=== PATIENT | female | born 1970 | race African-American/Black ===

== ENCOUNTER 2016-11-06 12:59 | Emergency (ER) | payer BC ==
[~2016-11-06] VITALS: Ht 162.6 cm; Wt 77.0 kg
[~2016-11-06 12:59] MED LIST: ALBU6.7H IH; MONT10TA21 PO; SYMB8060 IH; [UNRECOGNIZED DRUG - REMARK] PO
[2016-11-06] MEDS ORDERED: FLUT1AER PO (13:13)
[2016-11-06] MEDS ORDERED: PredniSONE 20 MG TABLET PO ONE (14:00)
[2016-11-06] MEDS ORDERED: IPRATROPIUM BROMIDE 0.5 MG/2.5 ML NEB SOLUTION NEB ONE (14:00)
[2016-11-06] MEDS ORDERED: ALBUTEROL SULFATE 5 MG/ML 20 ML NEB SOLN [BULK] NEB ONE (14:00)
[2016-11-06 16:24] VITALS: BP 144/83
[2016-11-07] MEDS ORDERED: FLUT1AER PO (09:55)
== END 2016-11-06 16:25 | disposition home or self-care (01) ==
LOC: EMS 13:01
DX: J45.901 Unspecified asthma with (acute) exacerbation (principal); Z88.0 Allergy status to penicillin; Z88.1 Allergy status to other antibiotic agents
CPT/HCPCS: 94644; 99285; J7512

== ENCOUNTER 2016-11-07 09:28 | Inpatient (IN) | payer BC ==
[~2016-11-07] VITALS: Ht 162.6 cm; Wt 83.5 kg
[~2016-11-07 09:28] MED LIST changes: +FLUT1AER PO; -SYMB8060 IH; -[UNRECOGNIZED DRUG - REMARK] PO
[2016-11-07] MEDS ORDERED: FLUT1AER PO (09:55)
[2016-11-07] MEDS ORDERED: PredniSONE 20 MG TABLET PO ONE (11:45)
[2016-11-07] MEDS ORDERED: ACETAMINOPHEN 500 MG TABLET PO ONE (11:45)
[2016-11-07] MEDS ORDERED: IPRATROPIUM BROMIDE 0.5 MG/2.5 ML NEB SOLUTION NEB ONE (11:45)
[2016-11-07] MEDS ORDERED: ALBUTEROL SULFATE 2.5 MG/0.5 ML NEB SOLUTION NEB ONE (11:45)
[2016-11-07] MEDS ORDERED: PANTOPRAZOLE SODIUM 40 MG/VIAL IVP ONE (14:45)
[2016-11-07] MEDS ORDERED: MethylPREDNISolone SOD SUCC 125 MG/2 ML VIAL IVP ONE (14:45)
[2016-11-07] MEDS ORDERED: SODIUM CHLORIDE 0.9% 100 ML ONE (14:59)
[2016-11-07] MEDS ORDERED: IOVERSOL 350 MG/ML 100 ML VIAL ONE (14:59)
[2016-11-07 15:12] LABS: ANION GAP 10 mmol/L (8-16); CALCIUM, TOTAL 8.5 mg/dL (8.8-10.5); CARBON DIOXIDE 25 mmol/L (22-29); CHLORIDE 103 mmol/L (98-107); CREATININE 1.13 mg/dL (0.60-1.30); GLOMERULAR FILTR. RATE CALC > 60 mL/min (>60); HEMATOCRIT 39.4 % (36-46); HEMOGLOBIN 12.8 g/dL (12.0-16.0); MEAN CORPUSCULAR HEMOGLOBIN 31.3 pg (26.0-34.0); MEAN CORPUSCULAR HGB CONC 32.5 G/dL (31.0-37.0); MEAN CORPUSCULAR VOLUME 96 fL (80-100); PLATELET COUNT (AUTO) 257 K/uL (150-450); POTASSIUM 3.5 mmol/L (3.5-5.1); RED CELL DISTRIBUTION WIDTH 15.3 % (11.5-14.5); SODIUM SERUM 138 mmol/L (136-145); UREA NITROGEN, BLOOD 8 mg/dL (7-18); WHITE BLOOD COUNT (AUTO) 8.8 K/uL (4.5-11.0)
[2016-11-07 15:19] LABS: ALANINE AMINOTRANSFERASE 53 U/L (12-78); ALBUMIN 3.3 g/dL (3.4-5.0); ASPARTATE AMINOTRANSFERASE 41 U/L (15-37); BILIRUBIN,TOTAL 0.7 mg/dL (0.1-1.0); TOTAL PROTEIN, SERUM 7.2 g/dL (6.4-8.2)
[2016-11-07 15:44] LABS: BAND NEUTROPHILS % (MANUAL) 13 % (1-5); LYMPHOCYTES % (MANUAL) 7 % (22-44); TOTAL CELLS COUNTED 100
[2016-11-07] MEDS ORDERED: AZITHROMYCIN 500 MG/NS 250 ML IV ONE (17:00)
[2016-11-07] MEDS ORDERED: BISACODYL 10 MG RECTAL RECTAL SUPPOSITORY PR PRN (17:00)
[2016-11-07] MEDS ORDERED: MORPHINE SULFATE 2 MG/ML SYRINGE IVP PRN (17:00)
[2016-11-07] MEDS ORDERED: IPRATROPIUM BROMIDE 0.5 MG/2.5 ML NEB SOLUTION NEB PRN (17:00)
[2016-11-07] MEDS ORDERED: LEVOFLOXACIN 750 MG/D5% WATER 150 ML IV ONE (17:00)
[2016-11-07] MEDS ORDERED: HYDROCODONE/ACETAMINOPHEN 5-325 MG TABLET PO PRN (17:00)
[2016-11-07] MEDS ORDERED: MAGNESIUM HYDROXIDE SUSPENSION 30 ML UDCUP PO PRN (17:00)
[2016-11-07] MEDS ORDERED: ONDANSETRON HCL 4 MG/2 ML VIAL IVP PRN (17:00)
[2016-11-07] MEDS ORDERED: ALBUTEROL SULFATE 2.5 MG/0.5 ML NEB SOLUTION NEB PRN (17:00)
[2016-11-07] MEDS: MethylPREDNISolone SOD SUCC 125 MG/2 ML VIAL IVP SCH (18:07)
[2016-11-07 18:45] VITALS: BP 141/80
[2016-11-07 19:33] VITALS: BP 145/81
[2016-11-07] MEDS: GuaiFENesin SR 600 MG ER TABLET PO SCH (20:11)
[2016-11-07] MEDS: DOCUSATE SODIUM 100 MG CAPSULE PO SCH (20:11)
[2016-11-07] MEDS: BENZONATATE 100 MG CAPSULE PO SCH (20:11)
[2016-11-07] MEDS: ACETAMINOPHEN 325 MG TABLET PO PRN (20:11)
[2016-11-07] MEDS: IPRATROPIUM BROMIDE 0.5 MG/2.5 ML NEB SOLUTION NEB SCH (20:30)
[2016-11-07] MEDS: ALBUTEROL SULFATE 2.5 MG/0.5 ML NEB SOLUTION NEB SCH (20:30)
[2016-11-07 23:32] VITALS: BP 140/79
[2016-11-08] MEDS: HEPARIN SODIUM,PORCINE 5,000 UNITS/ML VIAL SQ SCH ×4 (00:43→23:13)
[2016-11-08] MEDS: MethylPREDNISolone SOD SUCC 125 MG/2 ML VIAL IVP SCH ×5 (00:43→23:13)
[2016-11-08] MEDS: ALBUTEROL SULFATE 2.5 MG/0.5 ML NEB SOLUTION NEB SCH ×4 (02:06→20:58)
[2016-11-08] MEDS: IPRATROPIUM BROMIDE 0.5 MG/2.5 ML NEB SOLUTION NEB SCH ×4 (02:07→20:58)
[2016-11-08 04:33] VITALS: BP 151/71
[2016-11-08 07:21] VITALS: BP 151/97
[2016-11-08] MEDS: DOCUSATE SODIUM 100 MG CAPSULE PO SCH ×2 (09:00→20:52)
[2016-11-08] MEDS: FLUTICASONE/VILANTEROL 100-25 MCG/INH INHALER [14] IH SCH (09:03)
[2016-11-08] MEDS: PANTOPRAZOLE SODIUM 40 MG DR TABLET PO SCH (09:04)
[2016-11-08] MEDS: BENZONATATE 100 MG CAPSULE PO SCH ×3 (09:04→20:45)
[2016-11-08] MEDS: GuaiFENesin SR 600 MG ER TABLET PO SCH ×2 (09:04→20:45)
[2016-11-08 11:29] VITALS: BP 148/80
[2016-11-08 15:29] VITALS: BP 131/57
[2016-11-08 19:12] VITALS: BP 154/93
[2016-11-08] MEDS: ZOLPIDEM TARTRATE 5 MG TABLET PO PRN (23:13)
[2016-11-08 23:19] VITALS: BP 135/86
[2016-11-09] MEDS: ALBUTEROL SULFATE 2.5 MG/0.5 ML NEB SOLUTION NEB SCH ×4 (02:12→19:47)
[2016-11-09] MEDS: IPRATROPIUM BROMIDE 0.5 MG/2.5 ML NEB SOLUTION NEB SCH ×4 (02:12→19:47)
[2016-11-09 04:33] VITALS: BP 157/89
[2016-11-09] MEDS: MethylPREDNISolone SOD SUCC 125 MG/2 ML VIAL IVP SCH ×2 (05:56→12:52)
[2016-11-09 07:39] VITALS: BP 167/103
[2016-11-09] MEDS: HEPARIN SODIUM,PORCINE 5,000 UNITS/ML VIAL SQ SCH ×3 (08:30→23:32)
[2016-11-09] MEDS: BENZONATATE 100 MG CAPSULE PO SCH ×3 (08:30→20:24)
[2016-11-09] MEDS: GuaiFENesin SR 600 MG ER TABLET PO SCH ×2 (08:30→20:24)
[2016-11-09] MEDS: DOCUSATE SODIUM 100 MG CAPSULE PO SCH ×2 (08:30→20:24)
[2016-11-09] MEDS: FLUTICASONE/VILANTEROL 100-25 MCG/INH INHALER [14] IH SCH (08:30)
[2016-11-09] MEDS: PANTOPRAZOLE SODIUM 40 MG DR TABLET PO SCH (08:30)
[2016-11-09 10:00] VITALS: BP 147/77
[2016-11-09 12:03] VITALS: BP 141/100
[2016-11-09] MEDS: MethylPREDNISolone SOD SUCC 40 MG/ML VIAL IVP SCH ×2 (18:10→23:32)
[2016-11-09 19:42] VITALS: BP 154/86
[2016-11-09] MEDS ORDERED: AmLODIPine BESYLATE 5 MG TABLET PO SCH (21:00)
[2016-11-09] MEDS: ZOLPIDEM TARTRATE 5 MG TABLET PO PRN (23:33)
[2016-11-09 23:58] VITALS: BP 142/89
[2016-11-10] MEDS: ALBUTEROL SULFATE 2.5 MG/0.5 ML NEB SOLUTION NEB SCH ×3 (01:23→07:01)
[2016-11-10] MEDS: IPRATROPIUM BROMIDE 0.5 MG/2.5 ML NEB SOLUTION NEB SCH ×3 (01:23→07:01)
[2016-11-10 04:33] VITALS: BP 133/63
[2016-11-10] MEDS: MethylPREDNISolone SOD SUCC 40 MG/ML VIAL IVP SCH ×2 (05:16→11:45)
[2016-11-10 07:47] VITALS: BP 147/85
[2016-11-10] MEDS: PANTOPRAZOLE SODIUM 40 MG DR TABLET PO SCH (08:22)
[2016-11-10] MEDS: BENZONATATE 100 MG CAPSULE PO SCH (08:22)
[2016-11-10] MEDS: GuaiFENesin SR 600 MG ER TABLET PO SCH (08:22)
[2016-11-10] MEDS: FLUTICASONE/VILANTEROL 100-25 MCG/INH INHALER [14] IH SCH (08:25)
[2016-11-10] MEDS: HEPARIN SODIUM,PORCINE 5,000 UNITS/ML VIAL SQ SCH (08:26)
[2016-11-10] MEDS: DOCUSATE SODIUM 100 MG CAPSULE PO SCH (08:26)
[2016-11-10] MEDS: ACETAMINOPHEN 325 MG TABLET PO PRN (09:07)
[2016-11-10 11:00] VITALS: BP 132/80
[2016-11-10] MEDS ORDERED: AMLO-511 PO (11:02)
[2016-11-10] MEDS ORDERED: BENZ-26 PO (11:03)
[2016-11-10] MEDS ORDERED: GUAIF600 PO (11:04)
[2016-11-10] MEDS ORDERED: IPRAHFA IH (11:06)
[2016-11-10] MEDS ORDERED: PRED20 PO (11:08)
[2016-11-10] MEDS ORDERED: CYCL10 PO (11:09)
== END 2016-11-10 12:50 | disposition home or self-care (01) | DRG 193 ==
LOC: EMS 09:30 → 5N 16:40
PROVIDERS: ADMIT Internal Medicine; ATTEND Internal Medicine
DX: J18.9 Pneumonia, unspecified organism (principal); J96.90 Respiratory failure, unspecified, unspecified whether with hypoxia or hypercapnia; J45.901 Unspecified asthma with (acute) exacerbation; F17.210 Nicotine dependence, cigarettes, uncomplicated; I10 Essential (primary) hypertension; Z88.1 Allergy status to other antibiotic agents; Z88.0 Allergy status to penicillin; Z88.2 Allergy status to sulfonamides; Z79.899 Other long term (current) drug therapy
CPT/HCPCS: 71275; 72100; 87040; 94640; 96365; 96368; 96375; 99285; C9113; J0456; J1644; J1956; J2920; J2930; J7050

== ENCOUNTER 2017-03-04 21:51 | Emergency (ER) | payer BC ==
[~2017-03-04] VITALS: Ht 162.6 cm; Wt 81.8 kg
[~2017-03-04 21:51] MED LIST changes: +AMLO-511 PO; +BENZ100C98 PO; +CYCL10 PO; +GUAIF600 PO; +IPRAHFA IH; +PRED20 PO
[2017-03-04] MEDS ORDERED: AUD NEB (22:06)
[2017-03-04] MEDS ORDERED: 0.9% SODIUM CHLORIDE 5 ML NEB SOLUTION NEB ONE (22:09)
[2017-03-04] MEDS ORDERED: ALBUTEROL SULFATE 5 MG/ML 20 ML NEB SOLN [BULK] NEB ONE (22:15)
[2017-03-04] MEDS ORDERED: IPRATROPIUM BROMIDE 0.5 MG/2.5 ML NEB SOLUTION NEB ONE (22:15)
[2017-03-04] MEDS ORDERED: PredniSONE 20 MG TABLET PO ONE (23:15)
[2017-03-05] MEDS ORDERED: IPRATROPIUM BROMIDE 0.5 MG/2.5 ML NEB SOLUTION NEB ONE (00:30)
[2017-03-05] MEDS ORDERED: ALBUTEROL SULFATE 2.5 MG/0.5 ML NEB SOLUTION NEB ONE (00:30)
[2017-03-05] MEDS ORDERED: 0.9% SODIUM CHLORIDE 5 ML NEB SOLUTION NEB ONE (00:36)
[2017-03-05 01:00] VITALS: BP 150/69
== END 2017-03-05 01:18 | disposition home or self-care (01) ==
LOC: EMS 21:53
DX: J45.901 Unspecified asthma with (acute) exacerbation (principal); F17.210 Nicotine dependence, cigarettes, uncomplicated; Z88.2 Allergy status to sulfonamides; Z88.1 Allergy status to other antibiotic agents; Z88.0 Allergy status to penicillin
CPT/HCPCS: 94644; 99285; J7512; J7611; J7613; 94640

== ENCOUNTER 2017-05-29 20:20 | Emergency (ER) | payer SELFPAY ==
[~2017-05-29] VITALS: Ht 162.6 cm; Wt 80.0 kg
[~2017-05-29 20:20] MED LIST changes: +AUD NEB; -BENZ100C98 PO; -CYCL10 PO; -GUAIF600 PO; -PRED20 PO
[2017-05-29] MEDS ORDERED: ALBUTEROL SULFATE 5 MG/ML 20 ML NEB SOLN [BULK] NEB ONE ×2 (20:45→21:15)
[2017-05-29] MEDS ORDERED: 0.9% SODIUM CHLORIDE 5 ML NEB SOLUTION NEB ONE ×2 (20:56→21:11)
[2017-05-29] MEDS ORDERED: IPRATROPIUM BROMIDE 0.5 MG/2.5 ML NEB SOLUTION NEB ONE (21:15)
[2017-05-29] MEDS ORDERED: PredniSONE 20 MG TABLET PO ONE ×2 (22:15)
[2017-05-29] MEDS ORDERED: ACETAMINOPHEN 500 MG TABLET PO ONE (22:45)
[2017-05-29] MEDS ORDERED: LEVOFLOXACIN 250 MG TABLET PO ONE (23:00)
[2017-05-30 00:09] VITALS: BP 134/75
== END 2017-05-30 00:18 | disposition home or self-care (01) ==
LOC: EMS 20:21
DX: J45.901 Unspecified asthma with (acute) exacerbation (principal); F17.210 Nicotine dependence, cigarettes, uncomplicated
CPT/HCPCS: 94644; 99285; J7512; J7611

== ENCOUNTER 2017-10-11 10:08 | Emergency (ER) | payer SELFPAY ==
[~2017-10-11] VITALS: Ht 162.6 cm; Wt 77.3 kg
[~2017-10-11 10:08] MED LIST changes: -AMLO-511 PO; -AUD NEB; -IPRAHFA IH
[2017-10-11] MEDS ORDERED: ALBUTEROL SULFATE 5 MG/ML 20 ML NEB SOLN [BULK] NEB ONE (11:30)
[2017-10-11] MEDS ORDERED: IPRATROPIUM BROMIDE 0.5 MG/2.5 ML NEB SOLUTION NEB ONE ×2 (11:30→13:00)
[2017-10-11] MEDS ORDERED: PredniSONE 20 MG TABLET PO ONE (11:30)
[2017-10-11] MEDS ORDERED: ALBUTEROL SULFATE 2.5 MG/0.5 ML NEB SOLUTION NEB ONE (13:00)
[2017-10-11 14:06] VITALS: BP 149/78
== END 2017-10-11 14:08 | disposition home or self-care (01) ==
LOC: EMS 10:12
DX: J45.901 Unspecified asthma with (acute) exacerbation (principal); F17.210 Nicotine dependence, cigarettes, uncomplicated; Z88.0 Allergy status to penicillin; Z88.2 Allergy status to sulfonamides; Z88.1 Allergy status to other antibiotic agents
CPT/HCPCS: 94644; 99285; J7512; J7611; J7613; 94640